=== PATIENT | female | born 1940 | race Hispanic/Latino ===

== ENCOUNTER 2017-06-30 02:35 | Emergency (ER) | payer OTHER ==
[~2017-06-30 02:35] MED LIST: ASPI-1026 PO; BUSP5TAB3 PO; CEFD300C3 PO; CHOL200013 PO; FERR-82 PO; FURO20TA4 PO; LABE100T PO; LACT1CAP60 PO; LEVO100T12 PO; LISI-617 PO
[2017-06-30 03:52] LABS: BASOPHILS % (AUTO) 0.2 % (0.0-5.0); EOSINOPHILS % (AUTO) 0.2 % (0.0-8.0); HEMATOCRIT 36.1 % (36-48); LYMPHOCYTES % (AUTO) 8.2 % (21.0-51.0); MEAN CORPUSCULAR HEMOGLOBIN 30.3 pg (27.0-33.0); MEAN CORPUSCULAR HGB CONC 33.8 g/dL (32.0-36.0); MEAN CORPUSCULAR VOLUME 89.6 fL (79-99); MONOCYTES % (AUTO) 4.6 % (3.0-13.0); NEUTROPHILS % (AUTO) 86.8 % (40.0-77.0); PLATELET COUNT (AUTO) 185 K/uL (130-400); RED BLOOD CELL COUNT(AUTO) 4.03 MIL/uL (4.00-5.50); RED CELL DISTRIBUTION WIDTH 13.9 % (11.0-15.5); WHITE BLOOD COUNT (AUTO) 7.8 K/uL (4.8-10.8)
[2017-06-30 04:07] LABS: ALBUMIN 3.5 g/dL (3.5-5.0); BILIRUBIN,TOTAL 0.8 mg/dL (0.2-1.0); CREATININE 0.9 mg/dL (0.5-1.5); TOTAL PROTEIN, SERUM 8.9 g/dL (6.0-8.3)
[2017-06-30 04:09] LABS: POTASSIUM 2.8 mmol/L (3.5-5.1)
[2017-06-30 05:06] LABS: APPEARANCE,URINE Cloudy (CLEAR); BILIRUBIN,URINE Negative (NEGATIVE); COLOR,URINE Yellow (YELLOW); GLUCOSE, URINE (UA) Negative (NEGATIVE); KETONES,URINE Negative (NEGATIVE); LEUKOCYTE ESTERASE ,URINE Moderate (NEGATIVE); NITRATE,URINE Negative (NEGATIVE); OCCULT BLOOD,URINE Large (NEGATIVE); PH,URINE 6.5 (5.0-8.0); PROTEIN,URINE POS 2+ (NEGATIVE)
[2017-06-30 05:14] LABS: RBC,URINE 0-1 /HPF (0-1)
[2017-06-30 05:15] LABS: BACTERIA,URINE Few /HPF (None Seen); MUCUS,URINE Moderate LPF (None Seen); SQUAMOUS EPITHELIAL CELL,UR Moderate /LPF (0-2)
[2017-06-30] MEDS ORDERED: POTASSIUM BICARB/CIT AC 25 MEQ TABLET.EFF ONE (05:45)
[2017-06-30] MEDS ORDERED: CEFTRIAXONE SODIUM 1 GM ONE (05:45)
== END 2017-06-30 06:25 | disposition home or self-care (01) ==
LOC: EDH 02:35
DX: N30.00 Acute cystitis without hematuria (principal); E87.6 Hypokalemia; I10 Essential (primary) hypertension
CPT/HCPCS: 36415; 80053; 81001; 82150; 83690; 85025; 93005; 96374; 99285; J0696

== ENCOUNTER 2017-07-20 13:55 | Emergency (ER) | payer OTHER ==
[2017-07-20 15:06] LABS: APPEARANCE,URINE Clear (CLEAR); BILIRUBIN,URINE Negative (NEGATIVE); COLOR,URINE Yellow (YELLOW); GLUCOSE, URINE (UA) Negative (NEGATIVE); KETONES,URINE Negative (NEGATIVE); LEUKOCYTE ESTERASE ,URINE Small (NEGATIVE); NITRATE,URINE Negative (NEGATIVE); OCCULT BLOOD,URINE Small (NEGATIVE); PH,URINE 6.5 (5.0-8.0); PROTEIN,URINE Negative (NEGATIVE); UROBILINOGEN,URINE 0.2 mg/dL (0.2-1.0)
[2017-07-20 15:11] LABS: BASOPHILS % (AUTO) 0.5 % (0.0-5.0); EOSINOPHILS % (AUTO) 0.3 % (0.0-8.0); LYMPHOCYTES % (AUTO) 18.7 % (21.0-51.0); MEAN CORPUSCULAR HEMOGLOBIN 30.1 pg (27.0-33.0); MEAN CORPUSCULAR HGB CONC 33.9 g/dL (32.0-36.0); MEAN CORPUSCULAR VOLUME 88.9 fL (79-99); MONOCYTES % (AUTO) 4.7 % (3.0-13.0); NEUTROPHILS % (AUTO) 75.8 % (40.0-77.0); PLATELET COUNT (AUTO) 164 K/uL (130-400); RED BLOOD CELL COUNT(AUTO) 4.28 MIL/uL (4.00-5.50); RED CELL DISTRIBUTION WIDTH 14.5 % (11.0-15.5)
[2017-07-20 15:16] LABS: BACTERIA,URINE Rare /HPF (None Seen); RBC,URINE 0-1 /HPF (0-1); WBC,URINE 0-1 /HPF (0-1)
[2017-07-20 15:20] LABS: POTASSIUM 3.2 mmol/L (3.5-5.1)
== END 2017-07-20 16:08 | disposition home or self-care (01) ==
LOC: EDH 13:55
DX: F03.90 Unspecified dementia, unspecified severity, without behavioral disturbance, psychotic disturbance, mood disturbance, and anxiety (principal); R26.89 Other abnormalities of gait and mobility; I10 Essential (primary) hypertension; I25.2 Old myocardial infarction; Z95.1 Presence of aortocoronary bypass graft
CPT/HCPCS: 36415; 70450; 80048; 81001; 82607; 84484; 85025; 93005

== ENCOUNTER 2017-11-06 13:13 | Emergency (ER) | payer OTHER ==
[~2017-11-06 13:13] MED LIST changes: -LABE100T PO; +LABE100T5 PO
[2017-11-06 13:46] LABS: BASOPHILS % (AUTO) 0.3 % (0.0-5.0); HEMATOCRIT 30.3 % (36-48); MEAN CORPUSCULAR HEMOGLOBIN 30.5 pg (27.0-33.0); MEAN CORPUSCULAR HGB CONC 33.7 g/dL (32.0-36.0); MEAN CORPUSCULAR VOLUME 90.3 fL (79-99); MONOCYTES % (AUTO) 7.1 % (3.0-13.0); NEUTROPHILS % (AUTO) 72.6 % (40.0-77.0); PLATELET COUNT (AUTO) 176 K/uL (130-400); RED BLOOD CELL COUNT(AUTO) 3.36 MIL/uL (4.00-5.50); RED CELL DISTRIBUTION WIDTH 14.3 % (11.0-15.5); WHITE BLOOD COUNT (AUTO) 5.4 K/uL (4.8-10.8)
[2017-11-06 13:53] LABS: POTASSIUM 3.5 mmol/L (3.5-5.1)
[2017-11-06 13:58] LABS: ALBUMIN 3.1 g/dL (3.5-5.0); BILIRUBIN,TOTAL 0.5 mg/dL (0.2-1.0); TOTAL PROTEIN, SERUM 7.7 g/dL (6.0-8.3)
[2017-11-06 14:06] LABS: CREATINE KINASE MB 1.1 ng/mL (0.5-3.6); CREATINE KINASE, TOTAL 67 U/L (21-232); MYOGLOBIN 55 ng/mL (10-92); TROPONIN I < 0.04 ng/mL (0.00-0.06)
[2017-11-06 14:14] LABS: APPEARANCE,URINE Cloudy (CLEAR); BILIRUBIN,URINE Negative (NEGATIVE); COLOR,URINE Dark Yellow (YELLOW); GLUCOSE, URINE (UA) Negative (NEGATIVE); KETONES,URINE Trace mg/dL (NEGATIVE); LEUKOCYTE ESTERASE ,URINE Moderate (NEGATIVE); NITRATE,URINE Negative (NEGATIVE); OCCULT BLOOD,URINE Moderate (NEGATIVE); PH,URINE 5.5 (5.0-8.0); PROTEIN,URINE POS 2+ (NEGATIVE)
[2017-11-06 14:31] LABS: BACTERIA,URINE Rare /HPF (None Seen)
== END 2017-11-06 15:22 | disposition home or self-care (01) ==
LOC: EDH 13:13
DX: M62.81 Muscle weakness (generalized) (principal); N39.0 Urinary tract infection, site not specified; I10 Essential (primary) hypertension; I25.2 Old myocardial infarction; Z87.891 Personal history of nicotine dependence
CPT/HCPCS: 36415; 80053; 81001; 82550; 82553; 83874; 84484; 85025; 87088; 93005

== ENCOUNTER 2018-04-04 16:04 | Observation (INO) | payer OTHER ==
[~2018-04-04] VITALS: Ht 121.9 cm; Wt 43.8 kg
[2018-04-04] MEDS ORDERED: MAG HYDROX/AL HYDROX/SIMETH ES 30 ML SUSP UDCUP PO PRN (18:45)
[2018-04-04] MEDS ORDERED: ACETAMINOPHEN 325 MG TAB PO PRN (18:45)
[2018-04-04] MEDS ORDERED: HYDRALAZINE HCL 20 MG/ML VIAL IV PRN (18:45)
[2018-04-04] MEDS ORDERED: MORPHINE SULFATE 2 MG/ML 1ML SYG IV PRN (18:45)
[2018-04-04] MEDS ORDERED: ONDANSETRON HCL 4 MG/2 ML VIAL IV PRN (18:45)
[2018-04-04 18:46] LABS: APPEARANCE,URINE Cloudy (CLEAR); BILIRUBIN,URINE Negative (NEGATIVE); COLOR,URINE Yellow (YELLOW); GLUCOSE, URINE (UA) Negative (NEGATIVE); KETONES,URINE Negative (NEGATIVE); LEUKOCYTE ESTERASE ,URINE Large (NEGATIVE); NITRATE,URINE Negative (NEGATIVE); OCCULT BLOOD,URINE Small (NEGATIVE); PROTEIN,URINE Negative (NEGATIVE); UROBILINOGEN,URINE 0.2 mg/dL (0.2-1.0)
[2018-04-04 18:50] LABS: CREATININE 1.1 mg/dL (0.5-1.5); POTASSIUM 3.4 mmol/L (3.5-5.1)
[2018-04-04 18:51] LABS: INR 1.02 (0.85-1.15); PARTIAL THROMBOPLASTIN TIME 25.2 SEC (26.3-35.5); PROTHROMBIN TIME 10.7 SEC (9.6-11.6)
[2018-04-04 18:55] LABS: ALBUMIN 3.7 g/dL (3.5-5.0); BILIRUBIN,TOTAL 0.5 mg/dL (0.2-1.0); TOTAL PROTEIN, SERUM 8.4 g/dL (6.0-8.3)
[2018-04-04 18:57] LABS: BASOPHILS % (AUTO) 0.2 % (0.0-5.0); EOSINOPHILS % (AUTO) 1.4 % (0.0-8.0); MEAN CORPUSCULAR HGB CONC 33.7 g/dL (32.0-36.0); MEAN CORPUSCULAR VOLUME 91.8 fL (79-99); MONOCYTES % (AUTO) 6.1 % (3.0-13.0); NEUTROPHILS % (AUTO) 72.3 % (40.0-77.0); NUCLEATED RED BLOOD CELLS 0.1 % (0.0-0.19); PLATELET COUNT (AUTO) 133 K/uL (130-400); RED CELL DISTRIBUTION WIDTH 14.4 % (11.0-15.5)
[2018-04-04 19:30] LABS: BACTERIA,URINE Few /HPF (None Seen); RBC,URINE 0-1 /HPF (0-1)
[2018-04-04 19:43] LABS: HEMOGLOBIN A1C 5.6 % (4.0-6.0)
[2018-04-04 20:44] VITALS: BP 193/85
[2018-04-04] MEDS ORDERED: LABETALOL 20 MG/4 ML DISP.SYRIN IV PRN (21:00)
[2018-04-04] MEDS ORDERED: LEVOFLOXACIN 500 MG/D5W 100 ML 100 ML IV SCH (22:15)
[2018-04-04] MEDS ORDERED: LIDOCAINE HCL-MPF 1% 2ML VIAL IVP PRN (22:45)
[2018-04-04] MEDS ORDERED: POTASSIUM CHLORIDE 20MEQ/100ML 100 ML IV PRN (22:45)
[2018-04-04] MEDS ORDERED: MAGNESIUM 2GM PREMIX 50ML 50 ML IV PRN (22:45)
[2018-04-04 23:28] VITALS: BP 150/75
[2018-04-04] MEDS: SODIUM CHLORIDE 0.9% 1000ML 1,000 ML IV SCH (23:31)
[2018-04-05] MEDS ORDERED: LISI-613 PO (00:31)
[2018-04-05] MEDS ORDERED: OXYB5TAB PO (00:31)
[2018-04-05] MEDS ORDERED: LEVO50 PO (00:31)
[2018-04-05] MEDS ORDERED: MEMA5TAB15 PO (00:31)
[2018-04-05] MEDS ORDERED: SERT25TA5 PO (00:31)
[2018-04-05] MEDS ORDERED: ATOR20TA65 PO (00:31)
[2018-04-05 03:34] VITALS: BP 179/91
[2018-04-05 03:43] LABS: BASOPHILS % (AUTO) 0.4 % (0.0-5.0); EOSINOPHILS % (AUTO) 1.8 % (0.0-8.0); HEMATOCRIT 32.2 % (36-48); LYMPHOCYTES % (AUTO) 15.7 % (21.0-51.0); MEAN CORPUSCULAR HEMOGLOBIN 31.3 pg (27.0-33.0); MEAN CORPUSCULAR HGB CONC 34.2 g/dL (32.0-36.0); MEAN CORPUSCULAR VOLUME 91.5 fL (79-99); MONOCYTES % (AUTO) 6.9 % (3.0-13.0); NEUTROPHILS % (AUTO) 75.2 % (40.0-77.0); NUCLEATED RED BLOOD CELLS 0.1 % (0.0-0.19); PLATELET COUNT (AUTO) 134 K/uL (130-400); RED BLOOD CELL COUNT(AUTO) 3.52 MIL/uL (4.00-5.50); RED CELL DISTRIBUTION WIDTH 14.2 % (11.0-15.5)
[2018-04-05 03:57] LABS: ALBUMIN 3.1 g/dL (3.5-5.0); BILIRUBIN,TOTAL 0.6 mg/dL (0.2-1.0); MAGNESIUM 1.7 mg/dL (1.80-2.40); POTASSIUM 3.2 mmol/L (3.5-5.1); TOTAL PROTEIN, SERUM 7.6 g/dL (6.0-8.3)
[2018-04-05 04:05] VITALS: BP 144/52
[2018-04-05 08:13] VITALS: BP 142/67
[2018-04-05] MEDS ORDERED: FAMOTIDINE/PF 20 MG/2 ML VIAL IV SCH (09:00)
[2018-04-05] MEDS: SODIUM CHLORIDE 0.9% 1000ML 1,000 ML IV SCH (09:41)
[2018-04-05] MEDS ORDERED: LEVO500T2 PO (10:00)
== END 2018-04-05 10:57 | disposition home or self-care (01) ==
LOC: EDH 16:04 → EDHIP 18:32 → 2DH 20:19
PROVIDERS: ADMIT Internal Medicine; ATTEND Internal Medicine
DX: S09.90XA Unspecified injury of head, initial encounter (principal); I25.5 Ischemic cardiomyopathy; I25.10 Atherosclerotic heart disease of native coronary artery without angina pectoris; K21.9 Gastro-esophageal reflux disease without esophagitis; E78.00 Pure hypercholesterolemia, unspecified; E03.9 Hypothyroidism, unspecified; I11.0 Hypertensive heart disease with heart failure; I50.42 Chronic combined systolic (congestive) and diastolic (congestive) heart failure; I49.5 Sick sinus syndrome; N39.0 Urinary tract infection, site not specified; R13.10 Dysphagia, unspecified; W01.0XXA Fall on same level from slipping, tripping and stumbling without subsequent striking against object, initial encounter; Y93.89 Activity, other specified; Y92.009 Unspecified place in unspecified non-institutional (private) residence as the place of occurrence of the external cause; Y99.8 Other external cause status; Z82.5 Family history of asthma and other chronic lower respiratory diseases; Z82.49 Family history of ischemic heart disease and other diseases of the circulatory system; Z95.1 Presence of aortocoronary bypass graft; Z95.810 Presence of automatic (implantable) cardiac defibrillator; Z80.8 Family history of malignant neoplasm of other organs or systems; Z79.899 Other long term (current) drug therapy
CPT/HCPCS: 36415 ×2; 70450 ×2; 70486; 72125; 80053 ×2; 81001; 83036; 83735; 84484; 85025 ×2; 85610; 85730; 87088; 93005; 96365; 96367; 96375; 99285; A4600; G0378 ×16; J1956; J3475; J3480; J3490 ×2; J7030

== ENCOUNTER → 2018-08-04 | Outpatient (CLI) | payer OTHER ==
[~2018-08-04] MED LIST changes: +ATOR20TA65 PO; -CEFD300C3 PO; +LEVO50 PO; +LEVO500T2 PO; +LISI-613 PO; -LISI-617 PO; +MEMA5TAB15 PO; +OXYB5TAB PO; +SERT25TA5 PO
== END | disposition home or self-care (01) ==
LOC: SHCH 08:39
PROVIDERS: ATTEND Internal Medicine Cardiovascular Disease
DX: I11.9 Hypertensive heart disease without heart failure (principal); I07.1 Rheumatic tricuspid insufficiency; I35.8 Other nonrheumatic aortic valve disorders; Z95.0 Presence of cardiac pacemaker
CPT/HCPCS: 93306

== ENCOUNTER 2018-11-20 12:35 | Emergency (ER) | payer OTHER ==
[2018-11-20 13:28] LABS: BASOPHILS % (AUTO) 0.4 % (0.0-5.0); EOSINOPHILS % (AUTO) 1.4 % (0.0-8.0); HEMATOCRIT 29.1 % (36-48); LYMPHOCYTES % (AUTO) 16.2 % (21.0-51.0); MEAN CORPUSCULAR HEMOGLOBIN 31.2 pg (27.0-33.0); MEAN CORPUSCULAR HGB CONC 33.5 g/dL (32.0-36.0); MEAN CORPUSCULAR VOLUME 93.2 fL (79-99); MONOCYTES % (AUTO) 8.3 % (3.0-13.0); NEUTROPHILS % (AUTO) 73.7 % (40.0-77.0); PLATELET COUNT (AUTO) 156 K/uL (130-400); RED BLOOD CELL COUNT(AUTO) 3.12 MIL/uL (4.00-5.50); RED CELL DISTRIBUTION WIDTH 14.4 % (11.0-15.5); WHITE BLOOD COUNT (AUTO) 3.7 K/uL (4.8-10.8)
[2018-11-20 13:35] LABS: CREATININE 1.4 mg/dL (0.5-1.5)
[2018-11-20 13:41] LABS: ALBUMIN 3.4 g/dL (3.5-5.0); BILIRUBIN,TOTAL 0.7 mg/dL (0.2-1.0); TOTAL PROTEIN, SERUM 7.9 g/dL (6.0-8.3)
[2018-11-20] MEDS ORDERED: SODIUM CHLORIDE 0.9% 500ML 500 ML IV ONE (13:59)
[2018-11-20 14:21] LABS: BILIRUBIN,URINE Negative (NEGATIVE); COLOR,URINE Dark Yellow (YELLOW); GLUCOSE, URINE (UA) Negative (NEGATIVE); KETONES,URINE Negative (NEGATIVE); LEUKOCYTE ESTERASE ,URINE Moderate (NEGATIVE); NITRATE,URINE Negative (NEGATIVE); OCCULT BLOOD,URINE Moderate (NEGATIVE); PROTEIN,URINE Trace mg/dL (NEGATIVE)
[2018-11-20 14:23] LABS: APPEARANCE,URINE SLIGHTLY CLOUDY (CLEAR)
[2018-11-20 14:43] LABS: BACTERIA,URINE Few /HPF (None Seen)
[2018-11-20 14:44] LABS: MUCUS,URINE Rare LPF (None Seen); SQUAMOUS EPITHELIAL CELL,UR Few /HPF (0-2)
== END 2018-11-20 16:59 | disposition home or self-care (01) ==
LOC: EDH 12:35
DX: E86.0 Dehydration (principal); M62.81 Muscle weakness (generalized); R19.7 Diarrhea, unspecified; I10 Essential (primary) hypertension; I25.2 Old myocardial infarction; I25.10 Atherosclerotic heart disease of native coronary artery without angina pectoris; E78.5 Hyperlipidemia, unspecified; Z98.890 Other specified postprocedural states
CPT/HCPCS: 36415; 80053; 81001; 82550; 83735; 84484 ×2; 85025; 87804 ×2; 93005 ×2; 99285; J7040

== ENCOUNTER 2019-07-12 15:24 | Emergency (ER) | payer OTHER ==
[~2019-07-12 15:24] MED LIST changes: -MEMA5TAB15 PO; +MEMA5TAB42 PO; +OXYB-66 PO; -OXYB5TAB PO
[2019-07-12 16:22] LABS: BASOPHILS % (AUTO) 0.1 % (0.0-5.0); EOSINOPHILS % (AUTO) 0.4 % (0.0-8.0); HEMATOCRIT 31.8 % (36-48); LYMPHOCYTES % (AUTO) 7.7 % (21.0-51.0); MEAN CORPUSCULAR HEMOGLOBIN 28.6 pg (27.0-33.0); MEAN CORPUSCULAR HGB CONC 31.1 g/dL (32.0-36.0); MEAN CORPUSCULAR VOLUME 91.9 fL (79-99); MONOCYTES % (AUTO) 4.4 % (3.0-13.0); PLATELET COUNT (AUTO) 213 K/uL (130-400); RED BLOOD CELL COUNT(AUTO) 3.46 MIL/uL (4.00-5.50); RED CELL DISTRIBUTION WIDTH 14.6 % (11.0-15.5); WHITE BLOOD COUNT (AUTO) 8.9 K/uL (4.8-10.8)
[2019-07-12 16:30] LABS: APPEARANCE,URINE Clear (CLEAR); BILIRUBIN,URINE Negative (NEGATIVE); COLOR,URINE Dark Yellow (YELLOW); GLUCOSE, URINE (UA) Negative (NEGATIVE); KETONES,URINE Negative (NEGATIVE); LEUKOCYTE ESTERASE ,URINE Small (NEGATIVE); NITRATE,URINE Negative (NEGATIVE); OCCULT BLOOD,URINE Large (NEGATIVE); PROTEIN,URINE 300 mg/dL (NEGATIVE)
[2019-07-12 16:36] LABS: ALBUMIN 2.5 g/dL (3.5-5.0); BILIRUBIN,TOTAL 1.3 mg/dL (0.2-1.0); CREATININE 0.9 mg/dL (0.5-1.5); INR 1.09 (0.85-1.15); PARTIAL THROMBOPLASTIN TIME 29.4 SEC (26.3-35.5); PROTHROMBIN TIME 11.4 SEC (9.6-11.6); TOTAL PROTEIN, SERUM 7.5 g/dL (6.0-8.3)
[2019-07-12 16:44] LABS: RBC,URINE 26-50 /HPF (0-1)
[2019-07-12 16:45] LABS: BACTERIA,URINE Few /HPF (None Seen)
== END 2019-07-12 17:30 | disposition home or self-care (01) ==
LOC: EDH 15:24
DX: M62.830 Muscle spasm of back (principal); I25.10 Atherosclerotic heart disease of native coronary artery without angina pectoris; E78.5 Hyperlipidemia, unspecified; I10 Essential (primary) hypertension; I25.2 Old myocardial infarction; Z79.899 Other long term (current) drug therapy
CPT/HCPCS: 36415; 71045; 80053; 81001; 84484; 85025; 85610; 85730; 93005

== ENCOUNTER 2019-07-15 18:26 | Observation (INO) | payer OTHER ==
[~2019-07-15] VITALS: Ht 124.5 cm; Wt 46.9 kg
[2019-07-15] MEDS ORDERED: ASPIRIN 325 MG TABLET ONE (18:49)
[2019-07-15 19:47] LABS: INR 1.09 (0.85-1.15); PARTIAL THROMBOPLASTIN TIME 26.8 SEC (26.3-35.5); PROTHROMBIN TIME 11.4 SEC (9.6-11.6)
[2019-07-15 20:30] LABS: ALBUMIN 2.5 g/dL (3.5-5.0); BILIRUBIN,TOTAL 0.7 mg/dL (0.2-1.0); TOTAL PROTEIN, SERUM 7.3 g/dL (6.0-8.3)
[2019-07-15 20:41] LABS: BASOPHILS % (AUTO) 0.2 % (0.0-5.0); EOSINOPHILS % (AUTO) 1.3 % (0.0-8.0); HEMATOCRIT 27.6 % (36-48); LYMPHOCYTES % (AUTO) 11.6 % (21.0-51.0); MEAN CORPUSCULAR HEMOGLOBIN 28.5 pg (27.0-33.0); MEAN CORPUSCULAR HGB CONC 31.5 g/dL (32.0-36.0); MEAN CORPUSCULAR VOLUME 90.5 fL (79-99); MONOCYTES % (AUTO) 5.1 % (3.0-13.0); NEUTROPHILS % (AUTO) 81.4 % (40.0-77.0); PLATELET COUNT (AUTO) 221 K/uL (130-400); RED BLOOD CELL COUNT(AUTO) 3.05 MIL/uL (4.00-5.50); RED CELL DISTRIBUTION WIDTH 14.8 % (11.0-15.5); WHITE BLOOD COUNT (AUTO) 4.7 K/uL (4.8-10.8)
[2019-07-15] MEDS ORDERED: NITROGLYCERIN 1GM/1 INCH PACKET TD ONE (23:15)
[2019-07-15] MEDS ORDERED: POTASSIUM CHLORIDE 10% ELIXIR 20 MEQ/15 ML UDCUP PO PRN (23:30)
[2019-07-15] MEDS ORDERED: LIDOCAINE HCL-MPF 1% 2ML VIAL IV PRN (23:30)
[2019-07-15] MEDS ORDERED: POTASSIUM CHLORIDE 20MEQ/100ML 100 ML IV PRN (23:30)
[2019-07-15] MEDS ORDERED: POTASSIUM CHLORIDE 20 MEQ ERTAB PO PRN (23:30)
[2019-07-16 00:24] LABS: EOSINOPHILS % (AUTO) 3.2 % (0.0-8.0); HEMATOCRIT 25.8 % (36-48); LYMPHOCYTES % (AUTO) 16.2 % (21.0-51.0); MEAN CORPUSCULAR HEMOGLOBIN 28.3 pg (27.0-33.0); MEAN CORPUSCULAR VOLUME 91.2 fL (79-99); MONOCYTES % (AUTO) 6.9 % (3.0-13.0); NEUTROPHILS % (AUTO) 73.2 % (40.0-77.0); PLATELET COUNT (AUTO) 200 K/uL (130-400); RED BLOOD CELL COUNT(AUTO) 2.83 MIL/uL (4.00-5.50); RED CELL DISTRIBUTION WIDTH 14.6 % (11.0-15.5); WHITE BLOOD COUNT (AUTO) 4.1 K/uL (4.8-10.8)
[2019-07-16] MEDS ORDERED: FUROSEMIDE 10 MG/ML 2ML VIAL ONE (00:27)
[2019-07-16] MEDS ORDERED: POTASSIUM CHLORIDE 20 MEQ ERTAB PO ONE (00:28)
[2019-07-16] MEDS ORDERED: LIDOCAINE HCL-MPF 1% 2ML VIAL ONE (01:39)
[2019-07-16] MEDS ORDERED: POTASSIUM CHLORIDE 20MEQ/100ML 100 ML IV ONE (01:39)
[2019-07-16 02:34] LABS: CREATINE KINASE, TOTAL 51 U/L (21-232); MYOGLOBIN 49 ng/mL (10-92); TROPONIN I < 0.04 ng/mL (0.00-0.06)
[2019-07-16 06:01] LABS: CREATININE 0.9 mg/dL (0.5-1.5); POTASSIUM 4.4 mmol/L (3.5-5.1)
[2019-07-16] MEDS: NITROGLYCERIN 1GM/1 INCH PACKET TD SCH ×3 (07:30→23:54)
[2019-07-16] MEDS ORDERED: ASPIRIN 325 MG TABLET ONE (07:54)
[2019-07-16] MEDS ORDERED: METOPROLOL TARTRATE 25 MG TAB ONE (07:54)
[2019-07-16] MEDS ORDERED: NITROGLYCERIN 1GM/1 INCH PACKET TD ONE (07:54)
[2019-07-16] MEDS: METOPROLOL TARTRATE 25 MG TAB PO SCH ×2 (09:00→20:41)
[2019-07-16] MEDS: ASPIRIN 81MG TAB.CHEW PO SCH (09:00)
[2019-07-16 09:24] LABS: CREATINE KINASE, TOTAL 47 U/L (21-232); MYOGLOBIN 44 ng/mL (10-92); TROPONIN I < 0.04 ng/mL (0.00-0.06)
[2019-07-16 11:00] VITALS: BP 149/73
--- NOTE | 2019-07-16 11:21 | NUR ---
DCP:HOME SW met with pt and family at bedside. Pt lives with her Jose Morfin and their 4 great grand kids ages 20 19 17 14. Pt has provider services 3hrs a day thru [facility] 17hrs a week. Pt has no DME, or HH services. Daughter Delilah Gamboa [phone] states pt has dementia and refuses to use any DME despite pt's need for assistance with walking. Daughter reports pt has poor appetite and is getting weaker, she believes related to the Dementia. PCP is Dr Hensley. transports as needed. Plan is home with family at ne Addendum: 07/16/19 at 1127 by RONALDO MERINO Amended: Links added.
[2019-07-16 14:13] LABS: TROPONIN I 0.06 ng/mL (0.00-0.06)
--- NOTE | 2019-07-16 15:00 | NUR ---
CHART REVIEWED [facility] GENERATED
[2019-07-16 16:00] VITALS: BP 174/83
[2019-07-16] MEDS ORDERED: METO-391 PO (17:49)
[2019-07-16] MEDS ORDERED: OMEP40CA13 PO (17:49)
[2019-07-16 19:00] VITALS: BP 176/86
[2019-07-16 21:20] LABS: TROPONIN I 0.1 ng/mL (0.00-0.06)
--- NOTE | 2019-07-16 23:57 | NUR ---
NOTE CHECKED MANUAL BP 192/94 P 78. CONTACTED HOSPITALIST VIA ANSWERING SERVICE. SPOKE TO ALANNA BAUTISTA [employer] UPON CALLBACK. NOTIFIED OF VITALS AND CURRENT BP MEDS. ALSO THAT HOME MEDS HAVE NOT BEEN REVIEWED/RESUMED. SAYS SHE WILL PLACE ORDERS. NOTIFIED PATIENT/SPOUSE OR NEW ORDERS ONCE [employer] PLACED THEM IN COMPUTER.
[2019-07-17] VITALS: BP 192/94
[2019-07-17] MEDS ORDERED: HYDRALAZINE HCL 20 MG/ML VIAL IV PRN
[2019-07-17] MEDS ORDERED: HYDRALAZINE HCL 20 MG/ML VIAL ONE (00:30)
[2019-07-17 04:00] VITALS: BP 142/72
[2019-07-17] MEDS: NITROGLYCERIN 1GM/1 INCH PACKET TD SCH (06:08)
[2019-07-17] MEDS ORDERED: NITROGLYCERIN 1GM/1 INCH PACKET TD SCH (06:30)
[2019-07-17 07:30] VITALS: BP 142/71
[2019-07-17] MEDS ORDERED: LEVOTHYROXINE 50 MCG TABLET PO SCH (07:30)
[2019-07-17] MEDS ORDERED: LISINOPRIL 20 MG TABLET PO SCH (09:00)
[2019-07-17] MEDS ORDERED: FUROSEMIDE 20 MG TABLET PO SCH (09:00)
[2019-07-17] MEDS ORDERED: SERTRALINE HCL 50 MG TABLET PO SCH (09:00)
[2019-07-17] MEDS ORDERED: METOPROLOL SUCCINATE 50 MG TAB.SR.24H PO SCH (09:00)
[2019-07-17] MEDS ORDERED: OXYBUTYNIN 5 MG TAB.SR.24H PO SCH (09:00)
[2019-07-17] MEDS: ASPIRIN 81MG TAB.CHEW PO SCH (10:08)
[2019-07-17 11:00] VITALS: BP 158/82
[2019-07-17] MEDS ORDERED: ASPI-1005 PO (13:25)
--- NOTE | 2019-07-17 17:51 | NUR ---
PT D/C HOME USING TEACH BACK TECHNIQUE RE; NEW MEDS, S/S TO WATCH FOR AND WHEN TO CALL MD OR 911. VAYA CON PÉREZ DOCTOR DE CAVECERA EN 2-4 DURON. VAYA CON PÉREZ CARDIOLOGO IN 1-2 SEMANAS POR EPISODIOS DE DOLOR DE PECHO. SI LE DA DOLOR DE PECHO VAYA AL EMERGENCIA OR LLAMAR 911. IV OUT, INTACT, NO BLEEDING, AAOX3, AT BEDSIDE UNDERSTAND TO FOLLOW UP WITH [facility] IN 1 WEEK. DENY ANY QUESTIONS AT THIS TIME.
[2019-07-17] MEDS ORDERED: ATORVASTATIN CALCIUM 20 MG TABLET PO SCH (21:00)
[2019-07-17] MEDS ORDERED: MEMANTINE HCL 5 MG TABLET PO SCH (21:00)
[2019-07-18] MEDS ORDERED: LEVOTHYROXINE 75 MCG TABLET PO SCH (07:30)
== END 2019-07-17 18:35 | disposition home or self-care (01) ==
LOC: EDH 18:26 → EDHIP 23:23 → 4CH 07-16 09:49
PROVIDERS: ADMIT Family Medicine; ATTEND Family Medicine
DX: R07.89 Other chest pain (principal); I48.91 Unspecified atrial fibrillation; I11.0 Hypertensive heart disease with heart failure; I50.43 Acute on chronic combined systolic (congestive) and diastolic (congestive) heart failure; E78.5 Hyperlipidemia, unspecified; E66.9 Obesity, unspecified; D64.9 Anemia, unspecified; E87.6 Hypokalemia; Z95.1 Presence of aortocoronary bypass graft; Z79.899 Other long term (current) drug therapy; Z68.30 Body mass index [BMI] 30.0-30.9, adult
CPT/HCPCS: 36415 ×2; 71045; 80048; 80053; 82550 ×5; 83735; 83874 ×4; 83880; 84484 ×6; 85025 ×2; 85610; 85730; 93005 ×2; 99291; G0378 ×44; J0360; J1940; J3480; J3490